=== PATIENT | female | born 1990 | race Caucasian/White ===

== ENCOUNTER 2020-05-26 02:42 | Emergency (ER) | payer BC, OTHER ==
[2020-05-26 02:49] VITALS: BP 131/85; PULSE 67; TEMP 97.9; BMI 27.6
== END 2020-05-26 03:47 | disposition home or self-care (01) ==
LOC: FER 02:42
DX: R00.2 Palpitations (principal)
CPT/HCPCS: 93005; 99284-25

== ENCOUNTER 2021-12-08 10:54 | Emergency (ER) | payer BC, OTHER ==
[2021-12-08 11:20] VITALS: BP 113/78; PULSE 88; RESP 16; TEMP 97.8; BMI 28.8
[2021-12-08 12:00] LABS: HEMATOCRIT 38.8 % (32.4-45.2); INR 1.02 (0.83-1.09); MCHC 36.1 g/dl (32.0-36.0); MEAN CELL VOLUME 91.6 fl (80-96); MEAN PLT VOLUME 8.5 fl (7.5-11.1); PLATELET COUNT 286.5 10^3/uL (134-434); PROTHROMBIN TIME (PATIENT) 11.7 SEC (9.7-13.0); RBC 4.24 10^6/uL (3.60-5.2); RDW 12.6 % (11.6-15.6); WHITE BLOOD COUNT 7.2 10^3/uL (4.0-10.8)
[2021-12-08 12:02] LABS: ACTIVATED PTT 31.9 SECONDS (25.2-36.5)
[2021-12-08 12:09] LABS: ALBUMIN 4.1 g/dl (3.4-5.0); BILIRUBIN,TOTAL 0.5 mg/dl (0.2-1); CALCIUM 9.1 mg/dl (8.5-10); CREATININE 0.6 mg/dl (0.55-1.3); TOT PROT 7.7 g/dl (6.4-8.2)
[2021-12-08 12:10] LABS: PLATELET ESTIMATE ADEQUATE
[2021-12-08 12:16] LABS: EPITHELIAL CELLS FEW /hpf
== END 2021-12-08 14:35 | disposition home or self-care (01) ==
LOC: FER 10:54
DX: O26.851 Spotting complicating pregnancy, first trimester (principal); Z3A.01 Less than 8 weeks gestation of pregnancy
CPT/HCPCS: 36415; 76817-TC; 80053; 81003; 81015; 84702; 85025; 85610; 85730; 86850; 86900; 86901; 87086; 99284-25